=== PATIENT | male | born 1955 | race Caucasian/White ===

== ENCOUNTER 2021-10-05 23:46 | Observation (INO) ==
[2021-10-05] MEDS ORDERED: SODIUM CHLORIDE 0.9% 1,000 ML IV STA (23:56)
[2021-10-06 00:42] LABS: Basophils % 0.5 % (0.0-0.8); Eosinophils # 0.2 10*3/uL (0.0-0.87); Hematocrit 45.2 VOL% (42.0-52.0); Hemoglobin 14.9 GM/DL (14.0-18.0); Immature Granulocytes % 0.4 %; Immature Granulocytes Absolute 0.03 #; Lymphocytes # 1.7 10*3/uL (1.4-4.0); Lymphocytes % 22.3 % (21.2-54.2); Mean Corpuscular Volume 93.8 FL (87-102); Mean Platelet Volume 10.5 FL (9.6-12.0); Monocytes # 0.8 10*3/uL (0.11-0.8); Neutrophils % 64.8 % (38.7-73.9); Platelet Count 227 T/CUMM (130-400); Red Blood Count 4.82 MC/CUMM (3.8-5.5); Red Cell Distribution Width 12.8 % (9.3-17.3); White Blood Count 7.6 T/CUMM (4-12)
[2021-10-06 01:06] LABS: Bilirubin,Urine Negative (Negative); Glucose,Urine (UA) Negative (Negative); Hyaline Casts,Urine 20 /LPF (0-3); Ketones,Urine Negative (Negative); Mucus,Urine Many /LPF (Occasional); Nitrite,Urine Negative (Negative); Protein,Urine Trace mg/dL (Negative); RBC,Urine 1 /HPF (0-4); Urine Appearance Clear (Clear); Urine Color Yellow (Yellow); Urine Specific Gravity >= 1.030 (1.001-1.035)
[2021-10-06 01:07] LABS: Blood, Urine Negative (Negative); Urine Urobilinogen 0.2 eU/dL (<2.0)
[2021-10-06 01:08] LABS: Albumin 3.2 G/DL (3.4-5.0); Bilirubin,Total 0.4 MG/DL (0.20-1.00); Calcium 7.9 MG/DL (8.5-10.1); Osmolality,Calculated 286.1 MOS/KG (273-304); Potassium 3.6 MMOL/L (3.5-5.1)
[2021-10-06] MEDS ORDERED: SODIUM CHLORIDE 0.9% 500 ML IV STA (01:14)
[2021-10-06] MEDS ORDERED: MAGNESIUM OXIDE 400 MG TABLET PO STA (01:15)
[2021-10-06] MEDS ORDERED: ENOXAPARIN 100 MG/ML SYRINGE SUBCUT STA (01:54)
[2021-10-06] MEDS ORDERED: MORPHINE 2 MG/1 ML SYRINGE IV PRN (01:54)
[2021-10-06] MEDS ORDERED: ACETAMINOPHEN 325 MG TABLET PO PRN (01:54)
[2021-10-06] MEDS ORDERED: GLUCAGON 1 MG VIAL IM PRN (01:54)
[2021-10-06] MEDS ORDERED: ONDANSETRON 4 MG/2 ML VIAL IV PRN (01:54)
[2021-10-06] MEDS ORDERED: MAGNESIUM SULF RIDER 2 GM/50 ML PREMIX IV ONE (01:54)
[2021-10-06] MEDS ORDERED: DEXTROSE 10% 250 ML BAG IV PRN (01:54)
[2021-10-06] MEDS ORDERED: ASPIRIN 325 MG TABLET PO STA (02:04)
[2021-10-06] MEDS ORDERED: ALBUTEROL/IPRATROPIUM 3 ML NEB RESP TX PRN (02:21)
[2021-10-06] MEDS ORDERED: POTASSIUM CHLORIDE 20 MEQ TABLET PO ONE (02:26)
[2021-10-06] MEDS ORDERED: LACTATED RINGERS 1,000 ML IV SCH (02:30)
[2021-10-06 03:02] VITALS: BP 102/76
[2021-10-06 03:29] LABS: Risk Ratio 3.37; Thyroid Stimulating Hormone 0.658 uIU/ml (0.358-3.74); VLDL Cholesterol 23.4 MG/DL
[2021-10-06 06:54] LABS: Calcium 8.3 MG/DL (8.5-10.1); Osmolality,Calculated 279.5 MOS/KG (273-304); Potassium 4.7 MMOL/L (3.5-5.1)
[2021-10-06] MEDS ORDERED: PANTOPRAZOLE 40 MG TABLET PO SCH (09:00)
[2021-10-06] MEDS ORDERED: ROSUVASTATIN 20 MG TABLET PO SCH (09:00)
[2021-10-06] MEDS ORDERED: MULTIVITAMIN (CENTRUM) TABLET PO SCH (09:00)
[2021-10-06] MEDS ORDERED: LORATADINE 10 MG TABLET PO SCH (09:00)
[2021-10-06] MEDS ORDERED: APIXABAN 5 MG TABLET PO SCH (11:00)
[2021-10-06] MEDS ORDERED: ASCORBIC ACID 500 MG TABLET PO SCH (11:00)
[2021-10-06] MEDS ORDERED: ENOXAPARIN 100 MG/ML SYRINGE SUBCUT SCH (14:00)
[2021-10-06] MEDS ORDERED: PRAMIPEXOLE 0.25 MG TABLET PO SCH (21:00)
[2021-10-06] MEDS ORDERED: PREGABALIN 50 MG CAPSULE PO SCH (21:00)
== END 2021-10-06 11:37 | disposition home or self-care (01) ==
LOC: EDUNIT# → EDBD → N.ED 23:46 → N.EDINP 23:46 → N.ICU 10-06 02:46
PROVIDERS: ADMIT Internal Medicine; ATTEND Internal Medicine